=== PATIENT | male | born 1965 | race African-American/Black ===

== ENCOUNTER 2017-07-24 10:52 | Emergency (ER) | payer MEDICAID ==
[~2017-07-24] VITALS: Ht 190.5 cm; Wt 101.2 kg
[2017-07-24 11:13] VITALS: BP 129/99
[2017-07-24] MEDS ORDERED: FLUORESCEIN SOD 1 MG TEST STRIP ONE (18:51)
== END 2017-07-24 13:33 | disposition home or self-care (01) ==
LOC: ER 10:52
DX: M54.31 Sciatica, right side (principal)
CPT/HCPCS: 93971

== ENCOUNTER 2020-10-07 11:40 | Emergency (ER) | payer BC, MEDICAID ==
[~2020-10-07] VITALS: Ht 190.5 cm; Wt 104.3 kg
[2020-10-07 14:05] LABS: Eosinophils # (auto) 0.1 10 ^3/uL (0-0.8); Eosinophils % (auto) 1.1 % (0.0-7.0); Hemoglobin 10.6 g/dL (13.5-17.5); Lymphocytes # (auto) 1.2 10 ^3/uL (0.4-5.4); Nucleated Red Blood Cells % 0.1 %; White Blood Cell 8.3 10^3/uL (4.4-10.8)
[2020-10-07 14:07] LABS: Basophils # (auto) 0 10 ^3/uL (0-0.2); Basophils % (auto) 0.5 % (0.0-2.0); Hematocrit 32.1 % (41.0-53.0); Lymphocytes % (auto) 14.5 % (10.0-50.0); Mean Corpuscular Hemoglobin 23.5 pg (28.0-32.0); Mean Corpuscular Volume 71.4 fL (80.0-100.0); Monocytes # (auto) 0.6 10 ^3/uL (0-1.3); Monocytes % (auto) 7.7 % (0.0-12.0); Neutrophils # (auto) 6.3 10 ^3/uL (1.6-8.6); Neutrophils % (auto) 76.2 % (37.0-80.0); Platelet Count (auto) 632 10^3/uL (140-450); Red Cell Distribution Width 17.9 % (11.8-14.3)
[2020-10-07 14:22] LABS: Albumin 2.9 g/dL (3.4-5.0); Calcium 8.7 mg/dL (8.5-10.1); Potassium 3.4 mmol/L (3.5-5.1)
[2020-10-07 14:25] LABS: BUN/Creatinine Ratio 9.1; Bilirubin, Total 0.4 mg/dL (0.2-1.0); Total Protein 9.2 g/dL (6.4-8.2)
[2020-10-07] MEDS ORDERED: POTASSIUM EFFERVESENT TAB 25 MEQ PO ONE (17:30)
[2020-10-07] MEDS ORDERED: cefTRIAXone 1GM/50ML D5W 50 ML IV ONE (18:00)
[2020-10-07] MEDS ORDERED: MORPHINE SULFATE 4 MG/ML SYR/VIAL IV ONE (19:00)
[2020-10-07] MEDS ORDERED: ONDANSETRON HCL 4 MG/2 ML VIAL IV ONE (19:00)
[2020-10-07 20:00] VITALS: BP 149/92
[2020-10-07] MEDS ORDERED: CLIN300C8 PO (21:28)
[2020-10-07] MEDS ORDERED: APIX5TAB4 PO (21:28)
== END 2020-10-07 22:07 | disposition home or self-care (01) ==
LOC: ER 11:40
DX: S91.031A Puncture wound without foreign body, right ankle, initial encounter (principal); I82.401 Acute embolism and thrombosis of unspecified deep veins of right lower extremity; E44.0 Moderate protein-calorie malnutrition; D64.9 Anemia, unspecified; L03.115 Cellulitis of right lower limb; F17.210 Nicotine dependence, cigarettes, uncomplicated; Z68.22 Body mass index [BMI] 22.0-22.9, adult; Z20.822 Contact with and (suspected) exposure to COVID-19; Z86.718 Personal history of other venous thrombosis and embolism; W34.00XA Accidental discharge from unspecified firearms or gun, initial encounter; Y93.89 Activity, other specified; Y92.89 Other specified places as the place of occurrence of the external cause; Y99.8 Other external cause status
CPT/HCPCS: 36415; 80053; 83605; 85025; 85049; 87040; 87205; 87426; 93971; 96365; 96375; 99285; J0696; J2270; J2405; 87077; 87186